=== PATIENT | male | born 1965 | race Two or more races ===

== ENCOUNTER 2024-02-27 09:07 | Outpatient (AMB) | payer MEDICAID, SELFPAY ==
[2024-02-27 09:32] VITALS: BP 147/88; PULSE 93; RESP 18; TEMP 36.7; O2SAT 98; BMI 32.2
--- NOTE | 2024-02-27 09:32 | PD.ORTHCLVIS ---
Vital signs 02/27/24 09:32 Height 1.6 m Height Method Stated Weight 82.582 kg Weight Measurement Method Standing Scale BMI 32.2 BP 147/88 H Blood Pressure Source Automatic Cuff Blood Pressure Location Right Upper Arm Position Sitting Respiration 18 Pulse 93 Pulse Source Monitor Temp 98.0 F Temp Source Temporal Artery Scan Pulse Oximetry (%) 98 Oxygen Delivery Method Room Air Med/Allergies Allergies & Medications Allergies No Known Allergies Allergy (Verified 02/27/24 09:33) Medication Reconciliation acetaminophen 500 mg tablet (Acetaminophen Extra Strength) 1,000 mg (2 x 500 mg) PO Q6H PRN pain #90 tabs 02/09/24 [Rx Confirmed 02/27/24] aspirin 81 mg tablet,delayed release 81 mg PO BID #60 tabs 02/09/24 [Rx Confirmed 02/27/24] doxycycline hyclate 100 mg tablet 100 mg PO BID #14 tabs 02/09/24 [Rx Confirmed 02/27/24] gabapentin 300 mg capsule 300 mg PO .qhs #30 caps 02/09/24 [Rx Confirmed 02/27/24] meloxicam 7.5 mg tablet 7.5 mg PO QDAY #30 tabs 02/09/24 [Rx Confirmed 02/27/24] oxycodone 5 mg tablet 5 mg PO Q6H PRN pain #28 tabs 02/09/24 [Rx Confirmed 02/27/24] sennosides 8.6 mg-docusate sodium 50 mg tablet (Senna-S) 1 tab-cap PO QDAY #30 tabs 02/09/24 [Rx Confirmed 02/27/24] Subjective Visit Visit for: follow up visit, post op #1 and knee Immunization / Flu Flu Vaccine in the Last 12 Months: No Flu Vaccine Exclusion Criteria: No Exclusion Criteria History of Present Illness Chief complaint: 2 WEEK POST OP Patient is doing well. He has no pain. He does not want to go to PT. Pain Pain level (0-10): 2 Pain duration: COMES AND GOES Pain location: inside (medial) Pain quality: aching Associated signs & symptoms: none Ambulatory data Ambulatory device: walker Treatments Improvement with previous injections: No Improvement with PT: No Improvement with NSAIDS: no Review of Systems Review of Systems: All systems negative unless otherwise noted in HPI. Exam Exam Patient is in no acute distress and is cooperative with the examination today. Patient has a normal mood and affect. Breathing is nonlabored. In no respiratory distress. Bilateral extremities were evaluated and demonstrates sensation intact to light touch. Palpable pedal pulses are present. No significant edema is present. Right knee incision is c/d/i Assessment and Plan Problem List (1) Bilateral primary osteoarthritis of knee: Status: Acute Plan: Patient is a pleasant 58-year-old male status staged bilateral total knee replacement. He is very happy with his progress He is doing great we will see him in 4 weeks with new x-ray (2) History of total left knee replacement: Status: Acute Office Procedures GNS Level of Care Nursing/Assessment Patient Status: Established Patient Nursing Assessment/Reassesment: Medication Reconciliation, Update PMH in EMR and Vital Signs Coordination of Care: Complex Care and Chronic Disease 1-5, Education Complex Pt/Fam, Consent,records obtained, informed consent and Staff clarify orders Special Needs: Language special needs Established Patient Charge Established Patient Point Assignment: 90 Established Patient Point Charge: EP Level 3 (80-115) Past Medical History Past Medical History Have you ever been diagnosed with any of the following: Neurological Problems Seizures: No Cardiology Problems Congestive Heart Failure: No Respiratory Problems Chronic Obstructive Pulmonary Disease (COPD): No Hx Cough: No Cough: No Wheezing: No Smoking: No Smoking Cessation Counseling: No Smoking Exposure: No Tobacco Use: No Clubbing: No Exposure to Respiratory Irritants: No Stomache/Intestinal Problems Hepatitis: No Genital/Urinary Problems Renal Disease: No Musculoskeletal Problems Arthritis: Yes (KNEES) Endocrine Problems Diabetes Mellitus Type 1: No Diabetes Mellitus Type 2: No Other Problems Hospitalization: No Shingles: No Falls: No Blood Transfusions: No Blood Transfusion Reaction: No Anesthesia Reactions: No Measles: No Cancer: No Surgical History Total Knee Replacement: Yes
== END 2024-02-27 10:02 | disposition home or self-care (01) ==
LOC: HODSRG 09:07
PROVIDERS: PCP Physician Assistant Medical; Referring Provider Physician Assistant Medical; Supervising Provider Orthopaedic Surgery Adult Reconstructive Orthopaedic Surgery; Visit Provider Orthopaedic Surgery Adult Reconstructive Orthopaedic Surgery
DX: M17.0 Bilateral primary osteoarthritis of knee (principal); Z96.652 Presence of left artificial knee joint
CPT/HCPCS: 99213; G0463